=== PATIENT | female | born 1990 ===

== ENCOUNTER 2020-05-10 10:06 | Emergency (ER) | payer SELFPAY ==
[2020-05-10 10:20] VITALS: BP 123/84
--- NOTE | 2020-05-10 11:01 | Event Note ---
ED Screening Note ED Screening Note: right sided pain that began a week ago states she has pain worse with movement and deep breaths no cough no fever no n/v/d no hemoptysis no SOB no leg swelling no recent travel or recent surgery no hormone use PMHx none no allergies to meds LNMP: currrently +tobacco, 4-5 cigarettes a day +marijuana This initial assessment/diagnostic orders/clinical plan/treatment(s) is/are subject to change based on patients health status, clinical progression and re- assessment by fellow clinical providers in the ED. Further treatment and workup at subsequent clinical providers discretion. Patient/guardian urged not to elope from the ED as their condition may be serious if not clinically assessed and ma naged. Initial orders include: CXR with ribs
--- NOTE | 2020-05-10 12:12 | XRay Report ---
RIGHT RIBS 3 VIEWS INDICATION: right sided rib pain. COMPARISON: None available. FINDINGS: RIBS: No acute, displaced fracture or other acute abnormality. CHEST: No acute findings. No pneumothorax. ADDITIONAL FINDINGS: No additional significant findings. IMPRESSION: 1. No acute abnormality. Signer Name: Leobardo Brown MD Signed: 05/10/2020 12:07 PM Workstation Name: [id number]
--- NOTE | 2020-05-10 12:23 | Emergency Department Report ---
ED General Adult HPI - General Chief complaint: Pain General Stated complaint: PAIN IN RIGHT SIDE Time Seen by Provider: 05/10/20 10:59 Source: patient Mode of arrival: Ambulatory Limitations: No Limitations - History of Present Illness Initial comments: 30-year-old -[place] female presents to the emergency room complaining of right-sided rib pain that started 1 week ago and has gotten worse with taking a deep breath and movement. Patient denies any injury. She denies any fever chills no cough no chest pain or shortness of breath. Patient states she took Tylenol 1 g yesterday did not help. Onset/Timin -: week(s) Location: chest (Right rib pain) Radiation: non-radiation Severity scale (0 -10): 8 Quality: sharp Consistency: intermittent Improves with: none Worsens with: movement, other (Deep breath) Associated Symptoms: denies other symptoms - Related Data Previous Rx's Medication Instructions Recorded Last Taken Type Ibuprofen [Motrin 600 MG tab] 600 mg PO Q8H PRN #21 tablet 05/10/20 Unknown Rx Allergies Allergy/AdvReac Type Severity Reaction Status Date / Time No Known Allergies Allergy Unverified 05/10/20 10:16 ED Review of Systems ROS: Stated complaint: PAIN IN RIGHT SIDE Other details as noted in HPI Comment: All other systems reviewed and negative ED Past Medical Hx - Past Medical History Previous Medical History?: No - Surgical History Past Surgical History?: No - Social History Smoking Status: Current Every Day Smoker Substance Use Type: Alcohol - Medications Home Medications: Home Medications Medication Instructions Recorded Confirmed Last Taken Type Ibuprofen [Motrin 600 MG tab] 600 mg PO Q8H PRN #21 tablet 05/10/20 Unknown Rx ED Physical Exam - General Limitations: No Limitations General appearance: alert, in no apparent distress - Head Head exam: Present: atraumatic, normocephalic - Eye Eye exam: Present: normal appearance - ENT ENT exam: Present: mucous membranes moist - Neck Neck exam: Present: normal inspection - Respiratory Respiratory exam: Present: normal lung sounds bilaterally, chest wall tenderness (Right rib cage). Absent: respiratory distress - Cardiovascular Cardiovascular Exam: Present: regular rate, normal rhythm. Absent: systolic murmur, diastolic murmur, rubs, gallop - GI/Abdominal GI/Abdominal exam: Present: soft, normal bowel sounds - Back Exam Back exam: Present: normal inspection, full ROM - Neurological Exam Neurological exam: Present: alert, oriented X3, normal gait - Psychiatric Psychiatric exam: Present: normal affect, normal mood - Skin Skin exam: Present: warm, dry, intact, normal color. Absent: rash ED Course Vital Signs 05/10/20 10:15 Temperature 98.2 F Pulse Rate 101 H Respiratory 16 Rate Blood Pressure 123/84 O2 Sat by Pulse 99 Oximetry ED Medical Decision Making - Radiology Data Radiology results: report reviewed [facility] [address] [place] [address] XRay Report Signed Patient: NURIA SUTHERLAND MR#: [id number] : 1990 Acct:[id number] Age/Sex: 30 / F ADM Date: 05/10/20 Loc: ED Attending Dr: Ordering Physician: JOSE ACE Date of Service: 05/10/20 Procedure(s): XR ribs UNI w PA Chest 3+V RT Accession Number(s): [id number] cc: JOSE ACE Fluoro Time In Minutes: RIGHT RIBS 3 VIEWS INDICATION: right sided rib pain. COMPARISON: None available. FINDINGS: RIBS: No acute, displaced fracture or other acute abnormality. CHEST: No acute findings. No pneumothorax. ADDITIONAL FINDINGS: No additional significant findings. IMPRESSION: 1. No acute abnormality. Signer Name: Leobardo Brown MD Signed: 05/10/2020 12:07 PM Workstation Name: [id number] Transcribed By: [place] Dictated By: Leobardo Brown MD Electronically Authenticated By: Leobardo Brown MD Signed Date/Time: 05/10/20 120 DD/ 120 TD/TT: - Medical Decision Making 30-year-old -[place] female presents to the emergency room complaining of right-sided rib pain that started 1 week ago and has gotten worse with taking a deep breath and movement. Patient denies any injury. She denies any fever chills no cough no chest pain or shortness of breath. Chest x-ray with rib shows no acute abnormalities. Patient states she took Tylenol 1 g yesterday did not help. X-ray is negative for any acute abnormalities. Discussed with patient recommend her to take ibuprofen or naproxen increase her water intake. She can use a warm compress or heating pad. Critical care attestation.: If time is entered above; I have spent that time in minutes in the direct care of this critically ill patient, excluding procedure time. ED Disposition Clinical Impression: Costochondritis, acute Disposition: DC-01 TO HOME OR SELFCARE Is pt being admited?: No Does the pt Need Aspirin: No Condition: Stable Instructions: Costochondritis, [id number] Additional Instructions: X-ray is negative for any acute findings. I recommend you to take ibuprofen or naproxen. I also recommend a warm heating pad. Increase your water intake and follow-up with your primary care provider. Prescriptions: Ibuprofen [Motrin 600 MG tab] 600 mg PO Q8H PRN #21 tablet PRN Reason: Pain Referrals: [facility] [Provider Group] - 3-5 Days Forms: Work/School Release Form(ED)
== END 2020-05-10 12:43 | disposition home or self-care (01) ==
LOC: ED 10:06
DX: M94.0 Chondrocostal junction syndrome [Tietze] (principal); F17.200 Nicotine dependence, unspecified, uncomplicated; Z79.899 Other long term (current) drug therapy